=== PATIENT | female | born 1965 | race Caucasian/White ===

== ENCOUNTER → 2018-02-16 | Outpatient (CLI) | payer BC | LOC: MC.RAD 06:53 | DX: R22.2 Localized swelling, mass and lump, trunk (principal); M25.511 Pain in right shoulder ==

== ENCOUNTER → 2018-02-22 | Outpatient (CLI) | payer BC | LOC: COL.RAD 14:38 | DX: M47.892 Other spondylosis, cervical region (principal); G96.19 Other disorders of meninges, not elsewhere classified ==

== ENCOUNTER 2024-06-16 08:17 | Outpatient (CLI) | payer OTHER ==
[~2024-06-16] VITALS: Ht 180.3 cm; Wt 103.8 kg
[~2024-06-16 08:17] MED LIST: ARMOUR THYROID120 MG PO; ARMOUR THYROID30 MG PO; CLARITIN 1010 MG/TAB PO; COZAAR 25MG25 MG/TAB PO; HCTZ12.5TAB PO; MAG-OX 400400 MG/TAB PO; NASONEX SPRAY17 GM NS; PRIL40 PO; TYLENOL 500MG500 MG PO; [UNRECOGNIZED DRUG - OTHER] PO
[2024-06-16 08:37] VITALS: BP 157/98; PULSE 70; TEMP 97.9
[2024-06-16 09:57] VITALS: BP 132/81; PULSE 60
[2024-06-16 10:00] VITALS: BP 130/78; PULSE 58
[2024-06-16 10:15] VITALS: BP 129/79; PULSE 60
[2024-06-16 10:30] VITALS: BP 117/80; PULSE 56
[2024-06-16 10:45] VITALS: BP 135/77; PULSE 54
--- NOTE | 2024-06-16 11:09 | NUR ---
PT TOLERATED RECOVERY PERIOD WELL. PT REMAINED FLAT FOR ONE HOUR POST OPERATIVELY. VS REMAINED WITHIN NORMAL LIMITS. PT VERBALIZED UNDERSTANDING OF DISCHARGE INSTRUCTIONS. PT FREE FROM ACUTE CONCERNS AND COMPLAINTS UPON DISCHARGE. RED-TOP LAB DRAWN BY ROTARY DRYER OPERATOR.
[2024-06-16 11:59] LABS: TOTAL PROTEIN,CSF 29 mg/dL (15-45)
[2024-06-16 12:13] LABS: CSF APPEARANCE CLEAR; CSF COLOR COLORLESS; CSF RBC 25 /mm3 (0-0)
[2024-06-16 13:50] LABS: CSF MONONUCLEAR 100 % (70-100); CSF POLYMORPHONUCLEAR 0 % (0-6)
[2024-06-20 05:39] LABS: CSF SYNTHESIS RATE -2.5 mg/day (()); CSF,IGG 2.3 mg/dL (0.0-6.7)
== END 2024-06-16 11:11 | disposition home or self-care (01) ==
LOC: COL.RAD 08:17
PROVIDERS: Nurse Practitioner
DX: G43.809 Other migraine, not intractable, without status migrainosus (principal); R20.2 Paresthesia of skin